=== PATIENT | male | born 1985 | race Caucasian/White ===

== ENCOUNTER 2017-06-10 16:00 | Emergency (ER) | payer OTHER ==
[2017-06-10 16:11] VITALS: BP 128/83; O2SAT 100
--- NOTE | 2017-06-10 16:12 | ED.PDOC ---
History of Present Illness - General Chief Complaint: Lower Extremity Injury Stated Complaint: right foot injury Time Seen by Provider: 06/10/17 16:08 Source: patient Exam Limitations: no limitations - History of Present Illness Occurred: yesterday Pain - Lower Extremity: moderate: Right Foot Method of Injury: direct blow, other - kicked stump while running Improving Factors: immobilization Worsening Factors: movement Allergies/Adverse Reactions: Allergies NO KNOWN ALLERGY Allergy (Verified 06/10/17 16:11) Home Medications: Ambulatory Orders Acetaminophen W/ Codeine [Tylenol W/ CODEINE #3] 1 ea PO Q4HR PRN #20 06/10/17 Review of Systems - Review of Systems Constitutional: States: no symptoms reported EENTM: States: no symptoms reported Respiratory: States: no symptoms reported Cardiology: States: no symptoms reported Musculoskeletal: States: other - pain in R foot dorsum Skin: Denies: change in color, lumps, rash Neurological: States: no symptoms reported. Denies: numbness, paresthesia Family Medical History - Family History Mother Family History: Unknown Physical Exam - Physical Exam General Appearance: Alert, Comfortable Leg: normal inspection, non-tender Knee: normal inspection, non-tender Ankle: normal inspection, non-tender, normal ROM Foot: limited ROM, swelling, other - tender with 1+ edema to lateral dorsum Neuro/Tendon: normal sensation, normal motor functions Mental Status: alert, oriented x 3 Skin: normal color, warm/dry Progress - EKG/XRAY/CT XRAY: R foot Xray Comments: negative per radiology Departure - Departure Clinical Impression: Sprain of right ankle or foot Disposition: Discharge to Home or Self Care Condition: Good Departure Forms: ED Discharge - Pt. Copy, Patient Portal Self Enrollment Instructions: DI for Leg Pain Prescriptions: Acetaminophen W/ Codeine [Tylenol W/ CODEINE #3] 1 ea PO Q4HR PRN #20 PRN Reason: Pain -- Moderate To Severe Home Medications: Ambulatory Orders Acetaminophen W/ Codeine [Tylenol W/ CODEINE #3] 1 ea PO Q4HR PRN #20 06/10/17
--- NOTE | 2017-06-10 16:26 | RAD ---
EXAM DESCRIPTION: Foot,Right 3 Views CLINICAL HISTORY: 32 years ,Male kicked stump, pain COMPARISON: None. TECHNIQUE: RIGHT foot, Three view FINDINGS: No acute fractures or dislocations are identified. No osseous destructive lesions. No radiopaque foreign object noted. No significant ankle effusion noted. IMPRESSION: No acute fracture or dislocation is identified. Electronically signed by: Marion Millan 06/10/2017 4:25 PM [facility]
== END 2017-06-10 16:52 | disposition home or self-care (01) ==
LOC: ER 16:00
DX: S93.401A Sprain of unspecified ligament of right ankle, initial encounter (principal); W22.09XA Striking against other stationary object, initial encounter; Y93.02 Activity, running